=== PATIENT | female | born 1965 | race Caucasian/White ===

== ENCOUNTER 2023-01-02 11:11 | Outpatient (OUT) | payer OTHER, SELFPAY ==
--- NOTE | 2023-01-02 11:45 | MM_ITS ---
Patient: ANGELA GUZMAN Exam Date: 01/02/2023 : 1965 Gender:F Ordering : DR Nick Flores . Admission #: [id number] Family : DR LINDA MOHR M.D. Order #: [id number] CLICK HERE TO VIEW EXAM RADIOLOGY REPORT PROCEDURE: MM TOMOSYNTHESIS SCREENING BI COMPARISON: MG MAMM SCREEN 3D MYRTLE CAD, 12/31/2021. MG MAMM SCREEN 3D MYRTLE CAD, 12/08/2020. MG MAMM SCREEN MYRTLE W CAD, 12/05/2019. MG MAMM MYRTEL SCRN W CAD DIG, 08/26/2013. INDICATIONS: Screening mammogram Z12.31 Calculator Name NCI Breast Cancer Risk Assessment Tool 5 Year Breast Cancer Risk 5.70% Lifetime Breast Cancer Risk 33.60% Personal Breast Cancer No Personal Ovarian Cancer No Treatments None Family Cancers Sister with breast cancer at age 42; Sister with breast cancer at age 57; Aunt-maternal with breast cancer at age 48; Aunt-maternal with ovarian cancer at age 45. LOCATION: [facility] BREAST COMPOSITION: Heterogeneously dense,which may obscure small masses. FINDINGS: DIAGNOSTIC CATEGORY 1--NEGATIVE. RIGHT BREAST: No significant suspicious finding. No significant change has occurred. LEFT BREAST: No significant suspicious finding. No significant change has occurred. RECOMMENDATIONS: ROUTINE MAMMOGRAM AND CLINICAL EVALUATION IN 12 MONTHS. PLEASE NOTE: A NORMAL MAMMOGRAM DOES NOT EXCLUDE THE POSSIBILITY OF BREAST CANCER. A CLINICALLY SUSPICIOUS PALPABLE LUMP SHOULD BE BIOPSIED. Dictated by: Krzysztof Hayes M.D. on 01/02/2023 at 14:44 Approved by: Krzysztof Hayes M.D. on 01/02/2023 at 14:49
== END 2023-01-02 11:12 | disposition home or self-care (01) ==
LOC: MAMMO 11:16
PROVIDERS: PCP Family Medicine; Visit Provider Obstetrics & Gynecology
DX: Z12.31 Encounter for screening mammogram for malignant neoplasm of breast (principal); Z80.3 Family history of malignant neoplasm of breast
CPT/HCPCS: 77063; 77067

== ENCOUNTER 2024-12-23 12:44 | Outpatient (REF) | payer OTHER, SELFPAY ==
--- OUTSIDE RECORDS SUMMARY | 2024-12-16 16:15 | XMS_ITS | Encounter Summary ---
Author Organization [facility] Address [address] [place] [address] Care Team Providers Care Tagman Name Role Phone Waldemar Mercado MD Primary Care Provider [phone] Waldemar Mercado MD Unavailable Reason for Visit * Reason Comments MRI Results Pt is here today for MRI results, she states no changes. Encounter Details Date Type Department Care Team (Late st Contact Info) Description 12/16/2024 4:15 PM EDT [facility] Visit [facility] [address] [place] [address] Leonid Sierra, DPBrie [address] [place], [place] [phone] Stress fracture of left foot, initial encounter (Primary Dx); Left foot pain; Instability of left ankle joint; Difficulty walking Social History Tobacco Use Types Packs/Day Years Used Date Smoking Tobacco: Never Smokeless Tobacco: Never Tobacco Cessation:Counseling Given: Not Answered Alcohol Use Standard Drinks/Week Comments Not Currently 0 (1 standard drink = 0.6 oz pure alcohol) 1 or 2 drinks, monthly or less Comments Unknown Sex and Gender Information Value Date Recorded Sex Assigned at Not on file Legal Sex Female 7:00 PM EDT Gender Identity Not on file Sexual Orientation Not on file documented as of this encounter Last Filed Vital Signs Vital Sign Reading Time Taken Comments Blood Pressure - - Pulse - - Temperature - - Respiratory Rate - - Oxygen Saturation - - Inhaled Oxygen Concentration - - Weight 74.8 kg (165 lb) 12/16/2024 4:17 PM EDT Height 160 cm (5' 3 ) 12/16/2024 4:17 PM EDT Body Mass Index 29.23 12/16/2024 4:17 PM EDT documented in this encounter Progress Notes * Leonid Carr Vernon, DPM - 12/16/2024 4:15 PM EDT Images from the original note were not included. Subjective Patient ID: Cruzito Ruth is a 59 y.o. female who presents for MRI Results (Pt is here today for MRI results, she states no changes./). HPI Established patient returns to clinic for MRI review of the left foot. I have been treating her forsuspected Michelle's neuroma. Last visit she had minimal improvement following injection into the 3rdinterspace. I did have some concern for stress fracture an MRI was ordered. She returns to clinic for evaluation and MRI review. Continues to have pain daily. She states it is very annoying and makes me grouchy . Review of Systems Constitutional: Negative for activity change and appetite change. Respiratory: Negative for chest tightness and shortness of breath. Cardiovascular: Negative for chest pain. Musculoskeletal: Positive for arthralgias and gait problem. Skin: Negative for color change and wound. Neurological: Negative for weakness and numbness. Psychiatric/Behavioral: Negative for agitation and behavioral problems. Hematological: Does not bruise/bleed easily. Endocrine: Negative for cold intolerance and heat intolerance. Allergic/Immunologic: Negative for immunocompromised state. Past medical History Past Medical History: Diagnosis Date Autoimmune thyroiditis Chronic urticaria Frank's disease Nephrolithiasis 2014 Nontoxic goiter, unspecified Osteopenia 12/14/2020 DEXA Scan Moderate fx risk Psoriatic arthritis (HCC) Medications Current Outpatient Medications: furosemide (Lasix) 20 MG tablet, Take 1 tablet (20 mg) by mouth in the morning and 1 tablet (20 mg)before bedtime., Disp: 200 tablet, Rfl: 3 levothyroxine (Synthroid, Levoxyl) 75 MCG tablet, TAKE 1 TABLET BY MOUTH EVERY DAY IN THE MORNING ON EMPTY STOMACH, Disp: 100 tablet, Rfl: 3 omalizumab (Xolair) 150 MG/ML injection, Inject 2 mL (300 mg) under the skin every 28 (twenty-eight) days, Disp: 300 mL, Rfl: 2 phentermine (Adipex-P) 37.5 MG tablet, Take 1 tablet (37.5 mg) by mouth in the morning. Take beforemeals., Disp: 30 tablet, Rfl: 0 Xolair 150 MG/ML injection, Inject 2 mL (300 mg) under the skin See administration instructions Inject 2 mL (300 mg) under the skin every 6 weeks, Disp: 2 mL, Rfl: 3 Allergies Milk-related compounds, Penicillin g, Penicillins, Glycerin, Milk (cow), Soybean oil, and Wheat Past Surgical History Past Surgical History: Procedure Laterality Date APPENDECTOMY SECTION, CLASSIC 1995, 2000 x 2 [facility] SECTION, LOW TRANSVERSE 11/04/1992 COLONOSCOPY 03/23/2015 Internal Hemorrhoids, Biopsy x2 HERNIA REPAIR Left TOTAL ABDOMINAL HYSTERECTOMY W/ BILATERAL SALPINGOOPHORECTOMY 2003 Left oophorectomy Family History Family History Problem Relation Name Age of Onset Thyroid disease Mother Keysha Reich Hypertension Mother Keysha Reich Hypothyroidism Mother Keysha Reich Diabetes Father Dario Reich Breast cancer Sister Cancer Sister Colleen Anderson Cancer Sister Rachele Rachana Hypertension Maternal Grandmother Darby Sim Román Cancer Maternal Grandfather Diabetes Paternal Grandfather Alfonzo Román Other (viral meningitis) Child Melanoma Neg Hx Objective Physical Exam HENT: Head: Normocephalic and atraumatic. Cardiovascular: Pulses: Normal pulses. Pulmonary: Effort: Pulmonary effort is normal. No respiratory distress. Abdominal: Palpations: There is no mass. Musculoskeletal: Cervical back: No rigidity. Comments: Weightbearing examination reveals rectus morphology with slight cavus tendency. Maintenance of the medial longitudinal arch. Left foot: Isolated and maximal tenderness at the 4th metatarsal with some tenderness to palpation of the dorsal 5th metatarsal as well. Positive forefoot compression test, negative Geraldine's click. Muscle strength 5/5 for all quadrants without tenderness. Ankle dorsiflexion 0 degrees with the knee extended, 5 degrees with the knee flexed. Skin: Capillary Refill: Capillary refill takes less than 2 seconds. Findings: No lesion or rash. Neurological: Mental Status: She is alert. Comments: No loss of protective sensation, gross sensation intact. Psychiatric: Mood and Affect: Mood normal. Behavior: Behavior normal. 12/06/2024: MRI of the left foot reveals marrow edema at the base of the 4th metatarsal without fracture line. No evidence for Michelle's neuroma. Assessment/Plan ICD-10-CM 1. Stress fracture of left foot, initial encounter M84.375A 2. Left foot pain M79.672 3. 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 Difficulty walking R26.2 Patient examined and evaluated. Reviewed previous imaging studies and personally reviewed her MRI.MRI consistent with stress fracture of the 4th metatarsal base. At this time I recommend immobilization in a fracture boot for 6 weeks. Patient was fitted today for a below knee walking cast, cam walker. At the time of dispensing it was suitable and not substandard. Goals of therapy include prevent further injury, stabilization, reduction of stress and pressure to the injured area. Anticipated time of use is at least 6 weeks. Patient was instructed in the application and removal of this device.It fit well and she demonstrated the ability to don and doff the device independently. ABN form discussed, presented, explained and then signed by patient. She may remove the fracture boot multiple times a day for gentle [id number] exercises. No ambulation without the boot. Follow up 6 weeks with repeat radiographs necessary at that time only if she is continuing to have issues. This note was created with the assistance of a speech recognition program. While intending to generate a timely document that accurately reflects the content of the visit, no guarantee can be provided that every grammatical or spelling mistake has been or will be identified or corrected. Thank you for your understanding. Leonid Sierra DPM documented in this encounter Plan of Treatment Upcoming Encounters Date Type Department Care Team (Late st Contact Info) Description 01/27/2025 10:00 AM EDT Office Visit [facility] [address] [facility] [place] [phone] Leonid Sierra DPM [address] [place], [place] [phone] documented as of this encounter Visit Diagnoses Diagnosis Stress fracture of left foot, initial encounter- Primary Left foot pain Pain in soft tissues of limb Instability of left ankle joint Difficulty walking Difficulty in walking documented in this encounter Care Teams Tagman Relationship Specialty Start Date End Date Waldemar Mercado MD 112 [facility] [address] [place] [address] PCP - General Family Medicine 11/08/22 Waldemar Mercado MD 112 [facility] [address] [place] [address] PCP - Medical [place] 07/03/23 07/02/99 documented as of this encounter
--- OUTSIDE RECORDS SUMMARY | 2024-12-23 08:30 | XMS_ITS | Encounter Summary ---
Author Organization [facility] Address [address] [place] [address] Care Team Providers Care Director Of Regional Sales Name Role Phone Waldemar Mercado MD Primary Care Provider [phone] Waldemar Mercado MD Unavailable Reason for Visit * Reason Comments Well Women Visit Encounter Details Date Type Department Care Team (Late st Contact Info) Description 12/23/2024 8:30 AM EDT [facility] Visit [facility] [address] [facility] [place] [phone] Nick Flores DO [address], [facility]11 Well woman exam with routine gynecological exam; Breast cancer screening by mammogram; Postmenopausal state; Bee sting reaction, accidental or unintentional, initial encounter Social History Tobacco Use Types Packs/Day Years Used Date Smoking Tobacco: Never Smokeless Tobacco: Never Alcohol Use Standard Drinks/Week Comments Not Currently 0 (1 standard drink = 0.6 oz pure alcohol) 1 or 2 drinks, monthly or less Comments No Sex and Gender Information Value Date Recorded Sex Assigned at Not on file Legal Sex Female 7:00 PM EDT Gender Identity Not on file Sexual Orientation Not on file documented as of this encounter Last Filed Vital Signs Vital Sign Reading Time Taken Comments Blood Pressure 118/68 12/23/2024 8:47 AM EDT Pulse - - Temperature - - Respiratory Rate - - Oxygen Saturation - - Inhaled Oxygen Concentration - - Weight 76.6 kg (168 lb 12.8 oz) 12/23/2024 8:47 AM EDT Height - - Body Mass Index 29.9 12/16/2024 4:17 PM EDT documented in this encounter Plan of Treatment Upcoming Encounters Date Type Department Care Team (Late st Contact Info) Description 01/27/2025 10:00 AM EDT Office Visit [facility] [address] [place] [address] Leonid Sierra, DPM [address] [place] [address] Scheduled Orders Name Type Priority Associated Diagnoses Orde r Schedule Bilateral screening mammogram Imaging Routine Breast cancer screening by mammogram Expected: 12/23/2024, Expires: 02/22/2026 THIN PREP TIS PAP AND HR HPV DNA Pathology and Cytology Routine Well woman exam with routine gynecological exam Ordered: 12/23/2024 documented as of this encounter Procedures Procedure Name Priority Date/Time Associated Diagnosis Comments PAP SMEAR Routine 12/08/2020 12:00 AM EDT documented in this encounter Results * Pap Smear (12/08/2020 12:00 AM EDT) Swab Cervical swab / Unknown us Waldemar Mercado MD LAB CYTOLOGY ORDERABLES Final Re sult EXTERNAL LAB documented in this encounter Visit Diagnoses Diagnosis Well woman exam with routine gynecological exam Routine gynecological examination Breast cancer screening by mammogram Postmenopausal state Asymptomatic postmenopausal status (age-related) (natural) Bee sting reaction, accidental or unintentional, initial encounter documented in this encounter Care Teams Director Of Regional Sales Relationship Specialty Start Date End Date Waldemar Mercado MD [address] [facility] [address] [place] [address] PCP - General Family Medicine 11/08/22 Waldemar Mercado MD [address] [place] [address] PCP - Medical [place] [employer] 07/03/23 07/02/99 documented as of this encounter
--- OUTSIDE RECORDS SUMMARY | 2024-12-23 12:47 | XMS_ITS | Encounter Summary ---
Author Organization [facility] Address [address] [place] [address] Care Team Providers Care Iron Handler Name Role Phone Waldemar Mercado MD Primary Care Provider [phone] Waldemar Mercado MD Unavailable Encounter Details Date Type Department Care Team (Latest Contact Info) Description 12/16/2024 Travel Social History Tobacco Use Types Packs/Day Years [...] on file documented as of this encounter Plan of Treatment Upcoming Encounters Date Type Department Care Team (Late st Contact Info) Description 01/27/2025 10:00 AM EDT Office Visit [facility] [address] [place] [phone] Leonid Sierra DPM [address] [place], [place] [phone] documented as of this encounter Visit Diagnoses Not on filedocumented in this encounter Care Teams Iron Handler Relationship Specialty Start Date End Date Waldemar Mercado MD [address] [facility] [address] [place] [address] PCP - General Family Medicine 11/08/22 Waldemar Mercado MD [address] [place] [address] PCP - Medical [place] [employer] 07/03/23 07/02/99 documented as of this encounter
--- OUTSIDE RECORDS SUMMARY | 2024-12-23 12:47 | XMS_ITS | Encounter Summary ---
Author Organization [facility] Address [address] [place] [address] Care Team Providers Care Terrazzo Laborer Name Role Phone Waldemar Mercado MD Primary Care Provider [phone] Waldemar Mercado MD Unavailable Encounter Details Date Type Department Care Team (Late st Contact Info) Description 12/16/2024 Bamboo flowsheet [facility] [address] [place] [phone] Leonid Sierra DPM [address] [place], [place] [address] Social History Tobacco Use Types Packs/Day Years [...] EDT Office Visit [facility] [address] [place] [address] Leonid Sierra DPM [address] [place], [place] [phone] documented as of this encounter Visit Diagnoses Not on filedocumented in this encounter Care Teams Terrazzo Laborer Relationship Specialty Start Date End Date Waldemar Mercado MD 112 [facility] 110 [place] [address] PCP - General Family Medicine 11/08/22 Waldemar Mercado MD 112 [facility] [address] [place] [address] PCP - Medical [place] [employer] 07/03/23 07/02/99 documented as of this encounter
--- OUTSIDE RECORDS SUMMARY | 2024-12-23 12:47 | XMS_ITS | Encounter Summary ---
Author Organization [facility] Address [address] [place] [address] Care Team Providers Care Process Coach Name Role Phone Waldemar Mercado MD Primary Care Provider [phone] Waldemar Mercado MD Unavailable Encounter Details Date Type Department Care Team (Late st Contact Info) Description 01/04/2023 Abstract [facility] [address] [facility] 110 [place] [address] Waldemar Mercado MD 112 [facility] [address] [place] [address] Social History Tobacco Use Types Packs/Day Years Used Date Smoking Tobacco: Never Smokeless Tobacco: Never Alcohol Use Standard Drinks/Week Comments Yes 0 (1 standard drink = 0.6 oz pur e alcohol) 1 or 2 drinks, monthly or [...] AM EDT Office Visit [facility] [address] [place] [phone] Leonid Sierra, DPM [address] [place], [place] [phone] documented as of this encounter Visit Diagnoses Not on filedocumented in this encounter Care Teams Process Coach Relationship Specialty Start Date End Date Waldemar Mercado MD [address] [address] PCP - General Family Medicine 11/08/22 Waldemar Mercado MD 112 [facility] 110 [place] [address] PCP - Medical [place] [employer] 07/03/23 07/02/99 documented as of this encounter
--- OUTSIDE RECORDS SUMMARY | 2024-12-23 12:47 | XMS_ITS | Encounter Summary ---
Author Organization [facility] Address [address] [place] [address] Care Team Providers Care Research Engineer Marine Equipment Name Role Phone Waldemar Mercado MD Primary Care Provider [phone] Waldemar Mercado MD Unavailable Encounter Details Date Type Department Care Team (Late st Contact Info) Description 12/07/2022 Abstract [facility] [address] [facility] [address] [place] [address] Aleyda Tam MD [address] [facility] [address] [place] [address] Social History Tobacco Use Types Packs/Day Years Used Date Smoking Tobacco: Never Tobacco Cessation:Counseling Given: Not Answered Alcohol Use Standard Drinks/Week Comments Yes 0 [...] AM EDT Office Visit [facility] [address] [place] [phone] Leonid Sierra, YAMILAM [address] [place] [address] documented as of this encounter Visit Diagnoses Not on filedocumented in this encounter Care Teams Research Engineer Marine Equipment Relationship Specialty Start Date End Date Waldemar Mercado MD 112 [facility] 110 [place] [address] PCP - General Family Medicine 11/08/22 Waldemar Mercado MD 112 [facility] 110 [place] [address] PCP - Medical [place] [facility] [employer] 07/03/23 07/02/99 documented as of this encounter
--- OUTSIDE RECORDS SUMMARY | 2024-12-23 12:47 | XMS_ITS | Clinical Summary ---
Author Organization [facility] Healthcare Address [address] [place] [address] Care Team Providers Care Cut Roll Machine Operator Name Role Phone Waldemar Mercado MD Primary Care Provider [phone] Waldemar Mercado MD Unavailable Allergies Active Allergy Reactions Criticality Noted Date Comments Glycerin Rash Low 03/19/2021 Milk (Cow) Rash Low 03/19/2021 Milk-Related Compounds 04/25/2023 Other Reaction(s): , red skin Penicillin G Hives 06/24/2015 Penicillins 06/24/2015 Soybean Oil Rash Low 03/19/2021 Wheat Rash Low 03/19/2021 Medications furosemide (Lasix) 20 MG tabletIndicati ons:Acute renal failure, unspecified acute renal failure type Take 1 tablet (20 mg) by mouth in the morning and 1 tablet (20 mg) before bedtime. 200 tablet 3 024 Active omalizumab (Xolair) 150 MG/ML injectionIndic ations:Seasona l allergies Inject 2 mL (300 mg) under the skin every 28 (twenty-eight) days 300 mL 2 025 Active Xolair 150 MG/ML injectionIndic ations:Idiopat hic urticaria Inject 2 mL (300 mg) under the skin See administration instructions Inject 2 mL (300 mg) under the skin every 6 weeks 2 mL 3 025 Active levothyroxine (Synthroid, Levoxyl) 75 MCG tabletIndicati ons:Autoimmune thyroiditis TAKE 1 TABLET BY MOUTH EVERY DAY IN THE MORNING ON EMPTY STOMACH 100 tablet 3 025 Active methylPREDNISo lone (Medrol Dospak) 4 MG tabletsIndicat ions:Bee sting reaction, accidental or unintentional, initial encounter Day 1: 6 tablets Day 2: 5 tablets Day 3: 4 tablets Day 4: 3 tablets Day 5: 2 tablets Day 6: 1 tablet 21 tablet 025 Active levothyroxine (Synthroid, Levoxyl) 75 MCG tabletIndicati ons:Autoimmune thyroiditis TAKE 1 TABLET BY MOUTH EVERY DAY IN THE MORNING ON EMPTY STOMACH 100 tablet 3 024 2024 Discontinued phentermine (Adipex-P) 37.5 MG tabletIndicati ons:BMI 30.0-30.9,adul t Take 1 tablet (37.5 mg) by mouth in the morning. Take before meals. 30 tablet 025 2024 Discontinued Active Problems Problem Noted Date Diagnosed Date Benign essential hypertension 08/19/2024 Assessment & Plan (08/19/2024 8:54 AM EST): Our specific goals, for your hypertension, is to keep your blood pressure less than 140/90, and the importance of weight control. We made recommendations on how to control your blood pressure, and minimize your risk of these copmplications. We also discussed your current barriers to a healthy living and importance of healthy diet and exercise. Prior to your visit today we have reviewed your chart and formed a plan to assist with providing you the best possible care. We reviewed the possible complications of hypertension including, stroke, heart failure and kidney impairment. In addition, we discussed your medications, the importance of taking them as prescribed. DASH diet handouts Weight gain 08/19/2024 Acute left-sided low back pain without sciatica 11/28/2023 Acute renal failure syndrome 11/28/2023 Allergic to food 11/28/2023 Arthralgia of upper arm 11/28/2023 BMI 30.0-30.9,adult 11/28/2023 Assessment & Plan (08/19/2024 8:54 AM EST): Needs life style modification. Exercise Routinely Low Calorie Diet F/U in 2 weeks 3500 calorie deficit = 1lb weight loss Small portions TIming of meals Reduce Carbohydrate Intake High Protein Diet Assessment & Plan (11/28/2023 1:51 PM EDT): Needs life style modification. 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 Advised possible follow up for biopsy of lesion Abnormal glucose tolerance test 11/28/2023 Encounters Date Type Department Care Team Description 12/23/2024 8:30 AM EDT Office Visit [facility] [address] [place] [address] Nick Flores, Well woman exam with routine gynecological exam; Breast cancer screening by mammogram; Postmenopausal state; Bee sting reaction, accidental or unintentional, initial encounter 12/23/2024 Bamboo flowsheet [facility] [address] [place] [address] Nick Flores DO 12/16/2024 4:15 PM EDT [facility] Visit [facility] [address] [place] [address] Leonid Sierra, DPM Stress fracture of left foot, initial encounter (Primary Dx); Left foot pain; Instability of left ankle joint; Difficulty walking 12/16/2024 Bamboo flowsheet [facility] [address] [place] [address] Leonid Sierra DPM 12/16/2024 Travel 12/06/2024 2:30 PM EDT Ancillary Procedure [facility] [address] [facility] [place] [place] [address] 12/06/2024 Travel 12/04/2024 9:15 AM EDT Office Visit [facility] [address] [place] [address] Leonid Sierra DPM Morton's neuroma of left foot (Primary Dx); Stress fracture of left foot, initial encounter; Left foot pain; Other synovitis and tenosynovitis, left ankle and foot 12/04/2024 Bamboo flowsheet [facility] [address] [place] [address] Leonid Sierra DPM 12/04/2024 Travel 12/03/2024 Travel 12/02/2024 Refill [facility] [address] [facility] [address] [place] [address] Waldemar Mercado MD Autoimmune thyroiditis 11/20/2024 10:00 AM EDT Office Visit [facility] [address] [place] [address] Leonid Sierra DPM Michelle's neuroma of left foot (Primary Dx); Neuritis; Left foot pain 11/20/2024 Bamboo flowsheet [facility] [address] [place] [address] Leonid Sierra DPM 11/20/2024 Travel 11/19/2024 Travel 11/12/2024 Abstract [facility] [address] [facility] [address] [place] [address] Waldemar Mercado MD 10/31/2024 Telephone [facility] [address] [place] [address] Graciela Hinton LPN 10/31/2024 Refill [facility] [address] [place] [address] Waldemar Mercado MD Seasonal allergies 10/17/2024 Refill [facility] [address] [place] [address] Waldemar Mercado MD BMI 30.0-30.9,adult from Last 3 Months Family History Medical History Relation Name Comments viral meningitis Child Diabetes Father Dario Rachana Cancer Maternal Grandfather Hypertension Maternal Grandmother Darby [place] Hypertension Mother Keysha Rachana Hypothyroidism Mother Keysha Rachana Thyroid disease Mother Keysha Rachana Diabetes Paternal Grandfather Alfonzo Román Breast cancer Sister 1 Cancer Sister 2 Colleen Anderson Cancer Sister 3 Rachele Rachana Melanoma Neg Hx Relation Name Status Comments Child Alive Daughter Alive Father Dario Rachana Alive Maternal Grandfather Maternal Grandmother Darby [place] Mother Keysha Rachana Alive Paternal Grandfather Alfonzo Román Paternal Grandmother Sister 1 4 sisters Sister 2 Colleen Anderson Sister 3 Rachele Rachana Son 1 Alive Son 2 Alive Social History Tobacco Use Types Packs/Day Years [...] on file Sexual Orientation Not on file Last Filed Vital Signs Vital Sign Reading Time Taken Comments Blood Pressure 118/68 12/23/2024 8:47 AM EDT Pulse 71 08/19/2024 8:45 AM EST Temperature - - Respiratory Rate - - Oxygen Saturation 97% 08/19/2024 8:45 AM EST Inhaled Oxygen Concentration - - Weight 76.6 kg (168 lb 12.8 oz) 12/23/2024 8:47 AM EDT Height 160 cm (5' 3 ) 12/16/2024 4:17 PM EDT Body Mass Index 29.9 12/16/2024 4:17 PM EDT Plan of Treatment Upcoming Encounters Date Type Department Care Team (Late st Contact Info) Description 01/27/2025 10:00 AM EDT Office Visit [facility] [address] [facility] [place] [phone] Leonid Sierra, DPM [address] [place], [place] [address] Health Maintenance Due Date Last Done Comments CT Colonography 1967 FIT-DNA 1967 FIT 1967 FOBT 1965 Sigmoidoscopy 1967 Mammogram 02/05/2025 02/06/2024, 07/0 07/2021, 12/08/2020, Additional history exists Influenza Vaccine (Season Ended) 2025 Colonoscopy 03/23/2025 03/23/2015 Colorectal Cancer Screening 03/23/2025 Cervical Cancer Screening Discontinued Pap Smear Discontinued 12/08/2020 HPV/Cotest Discontinued Procedures Procedure Name Priority Date/Time Associated Diagnosis Comments MR FOOT LEFT WO IV CONTRAST Routine 12/06/2024 3:11 PM EDT Imchelle's neuroma of left foot Stress fracture of left foot, initial encounter BI MAMMOGRAM SCREENING TOMOSYNTHESIS BILATERAL 02/06/2024 10:37 AM EDT PAP SMEAR Routine 12/08/2020 12:00 AM EDT COLONOSCOPY Routine 03/23/2015 12:00 PM EDT from Last 3 Months or Most Recently Relevant to Health Maintenance Results * MR foot left wo IV contrast (12/06/2024 3:11 PM EDT) Anatomical Region Laterality Modality Lower Extremities, Foot Left Magnetic Resonance 12/09/2024 8:10 AM EDT Impressions 12/09/2024 10:26 AM EDT Small amount of bone marrow edema at the base of the fourth metatarsal as discussed. No evidence for Michelle's neuroma. ELECTRONICALLY SIGNED BY: Haroldo Lui MD Narrative 12/09/2024 10:26 AM EDT EXAM/TECHNIQUE: MR FOOT LEFT WO IV CONTRAST HISTORY: Left foot pain. Possible Michelle's neuroma. Possible stress fracture. COMPARISON: Radiographs 09/25/2023. RESULT: Bone Marrow: Small amount of bone marrow edema involving the base of the fourth metatarsal, without distinct fracture line, with differential including bone contusion, degenerative signal, and low-grade stress changes. Otherwise bone marrow signal unremarkable. Subcutaneous Tissues: Unremarkable. Joints: Mild degenerative changes first MTP joint. Tendons: Flexor and extensor tendons are within normal limits. Plantar Plates: Plantar plates are intact-appearing. Intermetatarsal Spaces: No evidence of Michelle's neuroma. Lisfranc Ligament: Intact. Plantar Aponeurosis: Visualized portions of the plantar aponeurosis within normal limits. Muscles: Muscle bulk and signal intensity are within normal limits. Other: No other significant abnormality Procedure Note Haroldo Lui MD - 12/09/2024 EXAM/TECHNIQUE: MR FOOT LEFT WO IV CONTRAST HISTORY: Left foot pain. Possible Michelle's neuroma. Possible stressfracture. COMPARISON: Radiographs 09/25/2023. RESULT: Bone Marrow: Small amount of bone marrow edema involving the base of thefourth metatarsal, without distinct fracture line, with differentialincluding bone contusion, degenerative signal, and low-grade stresschanges. Otherwise bone marrow signal unremarkable. Subcutaneous Tissues: Unremarkable. Joints: Mild degenerative changes first MTP joint. Tendons: Flexor and extensor tendons are within normal limits. Plantar Plates: Plantar plates are intact-appearing. Intermetatarsal Spaces: No evidence of Michelle's neuroma. Lisfranc Ligament: Intact. Plantar Aponeurosis: Visualized portions of the plantar aponeurosis withinnormal limits. Muscles: Muscle bulk and signal intensity are within normal limits. Other: No other significant abnormality IMPRESSION: Small amount of bone marrow edema at the base of the fourth metatarsal asdiscussed. No evidence for Michelle's neuroma. ELECTRONICALLY SIGNED BY: Haroldo Lui MD Leonid Sierra DPBrie IMG MRI PROCEDURES Final Re sult * Bilateral screening mammogram with tomosynthesis (02/06/2024 10:37 AM EDT) Anatomical Region Laterality Modality Breast Bilateral Mammography 02/06/2024 10:3 7 AM EDT Impressions 02/06/2024 10:40 AM EDT NO MAMMOGRAPHIC EVIDENCE OF MALIGNANCY. ROUTINE FOLLOW-UP IS RECOMMENDED IN ONE YEAR. RESULT CODE: 1 Negative DENSITY CODE: 2 (approximately 25-50% glandular) FOLLOW UP: 1YR The false-negative rate of mammography is approximately 10-percent. Management of a palpable abnormality must be based on clinical grounds. Patient was entered into a reminder system with a target due date for the next mammogram. Impression dictated by: Kyler Zamarripa Jr., D.OSarita02/06/2024 10:38 AM Dictation Location: [facility] Transcribed By: [facility] 02/06/24 1038 Dictated By: Kyler Zamarripa Jr, DO 02/06/24 1037 Signed By: <Electronically signed by Kyler Zamarripa Jr, DO in OV> 02/06/24 1038 Narrative 02/06/2024 10:40 AM EDT [facility] [place] [address] Mammography Report Signed Patient: Cruzito Ruth MR#: [id number] : 1965 Acct:[id number] Age/Sex: 58 / F ADM Date: 02/06/24 Loc: [place] Room: Type: [facility] Attending Dr: Waldemar Mercado MD Copies to: Waldemar Mercado MD Ordering Provider: Waldemar Mercado MD Date of Service: 02/06/24 MM/MM screening mammo BI w/CAD: SCREENING CLINICAL DATA: Screening for malignancy. SCREENING MAMMOGRAM - FULL FIELD DIGITAL WITH TOMOSYNTHESIS AND CAD COMPARISON:Mammogram 12/31/2021 Tomosynthesis craniocaudal and mediolateral oblique views of both breasts were obtained using low- dose digital technique. This examination was reviewed with the aid of CAD. FINDINGS: The breast tissue is composed of scattered fibroglandular densities. There are no dominant masses, typically malignant calcifications or architectural distortion. There has been no significant interval change. MM/MM screening mammo BI w/CAD Procedure Note Radiology, Radiologist, - 02/06/2024 [facility] Main [place] [address] [place] [address] Mammography Report Signed Patient: Cruzito RuthMR#: [id number] : 1965Acct:[id number] Age/Sex: 58 / FADM Date: 02/06/24 Loc: [place] Room:Type: [facility] Attending Dr: Waldemar Mercado MD Copies to: Waldemar Mercado MD Ordering Provider: Waldemar Mercado MD Date of Service: 02/06/24 MM/MM screening mammo BI w/CAD: SCREENING CLINICAL DATA: Screening for malignancy. SCREENING MAMMOGRAM - FULL FIELD DIGITAL WITH TOMOSYNTHESIS AND CAD COMPARISON:Mammogram 12/31/2021 Tomosynthesis craniocaudal and mediolateral oblique views of both breastswere obtained using low- dose digital technique. This examination was reviewed with the aid ofCAD. FINDINGS: The breast tissue is composed of scattered fibroglandular densities.There are no dominant masses, typically malignant calcifications or architectural distortion. There hasbeen no significant interval change. MM/MM screening mammo BI w/CAD IMPRESSION: NO MAMMOGRAPHIC EVIDENCE OF MALIGNANCY. ROUTINE FOLLOW-UP IS RECOMMENDED IN ONE YEAR. RESULT CODE: 1 Negative DENSITY CODE: 2 (approximately 25-50% glandular) FOLLOW UP: 1YR The false-negative rate of mammography is approximately 10-percent. Management of a palpable abnormality must be based on clinical grounds. Patient was entered into a reminder system with a target due date for thenext mammogram. Impression dictated by: Kyler Zamarripa Jr., D.OSarita02/06/2024 10:38 AM Dictation Location: [facility] Transcribed By: [facility] 02/06/24 1038 Dictated By: Kyler Zamarripa Jr, DO 02/06/24 1037 Signed By: <Electronically signed by Kyler Zamarripa Jr DO inOV> 02/06/24 1038 us Waldemar Mercado MD IMG BI PROCEDURES Final Result * Pap Smear (12/08/2020 12:00 AM EDT) Swab Cervical swab / Unknown Waldemar Mercado MD LAB CYTOLOGY ORDERABLES Final Re sult EXTERNAL LAB * Colonoscopy (03/23/2015 12:00 PM EDT) Anatomical Region Laterality Modality Endoscopy 03/23/2015 12:0 0 PM EDT Narrative 03/23/2015 12:00 PM EDT PERFORMED AT [facility] LOCATION:[id number] Internal Hemorrhoids, Biopsy x2 Procedure Note CONVERSION, GENERIC - 11/17/2022 PERFORMED AT [facility] LOCATION:[id number] Internal Hemorrhoids, Biopsy x2 Waldemar Mercado MD ENDOSCOPY PROCEDURE ORDERABLES F inal Result from Last 3 Months or Most Recently Relevant to Health Maintenance Insurance [employer] Care Teams Cut Roll Machine Operator Relationship Specialty Start Date End Date Waldemar Mercado MD [address] [facility] [address] [place] [address] PCP - General Family Medicine 11/08/22 Waldemar Mercado MD [address] [facility] [address] [place] [address] PCP - Medical [place] [employer] 07/03/23 07/02/99
--- OUTSIDE RECORDS SUMMARY | 2024-12-23 12:48 | XMS_ITS | Encounter Summary ---
Author Organization [facility] Address [address] [place] [address] Care Team Providers Care Heating And Ventilating Worker Name Role Phone Waldemar Mercado MD Primary Care Provider [phone] Waldemar Mercado MD Unavailable Encounter Details Date Type Department Care Team (Late st Contact Info) Description 08/13/2024 Abstract [facility] [address] [address] Nick Flores, DO [address] [facility] [address] [place], [place] [id number] Social History Tobacco Use Types Packs/Day Years [...] Office Visit [facility] [address] [place] [address] Leonid Sierra, DPM [address] [place], [place] [phone] documented as of this encounter Visit Diagnoses Not on filedocumented in this encounter Care Teams Heating And Ventilating Worker Relationship Specialty Start Date End Date Waldemar Mercado MD 112 [facility] 110 [place] [address] PCP - General Family Medicine 11/08/22 Waldemar Mercado MD [address] [address] PCP - Medical [place] [employer] 07/03/23 07/02/99 documented as of this encounter
--- OUTSIDE RECORDS SUMMARY | 2024-12-23 12:48 | XMS_ITS | Encounter Summary ---
Author Organization [facility] Address [address] [place] [address] Care Team Providers Care Asbestos Abatement Worker Name Role Phone Waldemar Mercado MD Primary Care Provider [phone] Waldemar Mercado MD Unavailable Encounter Details Date Type Department Care Team (Late st Contact Info) Description 11/08/2023 Abstract [facility] [address] [place] [address] Nick Flores, DO [address] [facility] [address] [place], [place] [id number] Social History Tobacco Use Types Packs/Day Years [...] Office Visit [facility] [address] [place] [phone] Leonid Sierra, DPM [address] [place], [place] [phone] documented as of this encounter Visit Diagnoses Not on filedocumented in this encounter Care Teams Asbestos Abatement Worker Relationship Specialty Start Date End Date Waldemar Mercado MD 112 [facility] 110 [place] [address] PCP - General Family Medicine 11/08/22 Waldemar Mercado MD [address] [address] PCP - Medical [place] [employer] 07/03/23 07/02/99 documented as of this encounter
--- OUTSIDE RECORDS SUMMARY | 2024-12-23 12:48 | XMS_ITS | Clinical Summary ---
Author Organization [facility] Address [address] [place], [place] [id number] Care Team Providers Care Shoeshiner Name Role Phone Waldemar Mercado MD Primary Care Provider [phone] Allergies Active Allergy Reactions Criticality Noted Date Comments Penicillin Hives 06/24/2015 Medications montelukast (SINGULAIR) 10 mg tablet Take 10 mg by mouth daily at bedtime. Active ranitidine (ZANTAC) 150 mg tablet Take 150 mg by mouth twice daily. Active levothyroxine (SYNTHROID) 50 mcg tablet Take 50 mcg by mouth daily before breakfast. Active diphenhydrAMIN E (BENADRYL) 25 mg capsule Take 50 mg by mouth daily at bedtime. Active fexofenadine (AYLEEN) 180 mg tablet Take 2 tablets by mouth twice daily. 90 tablet 2 5 Active doxepin capsule 25 mg Take 1 capsule by mouth daily at bedtime. 90 capsule 2 5 Active hydroxychloroq uine (PLAQUENIL) 200 mg tablet Take 1 tablet by mouth twice daily. 90 tablet 2 5 Active EPINEPHrine (EPIPEN) 0.3 mg/0.3 mL (1:1,000) auto-injector Use as directed. 2 Each 1 6 Active predniSONE (DELTASONE) 10 mg tablet Daily 10 mg for 1 week and taper to 5 mg daily for 1 week 30 tablet 0 6 Active omalizumab (XOLAIR) 150 mg injection Inject 2.4 mL subcutaneously q 4 WEEKS. 2 Each 11 6 Active Social History Tobacco Use Types Packs/Day Years Used Date Smoking Tobacco: Never Smokeless Tobacco: Never Alcohol Use Standard Drinks/Week Comments Not Asked 0 (1 standard drink = 0.6 oz pur e alcohol) Comments Unknown Sex and Gender Information Value Date Recorded Sex Assigned at Female 05/12/2020 11:17 AM EST Legal Sex Female 9:12 AM EST Gender Identity Female 05/12/2020 11:17 AM EST Sexual Orientation Straight 05/12/2020 11 :17 AM EST Last Filed Vital Signs Vital Sign Reading Time Taken Comments Blood Pressure 121/72 10/09/2015 1:42 PM EDT Pulse 74 10/09/2015 1:42 PM EDT Temperature 37.1 C (98.8 F) 10/09/2015 1:42 PM EDT Respiratory Rate 18 07/22/2015 9:57 AM EST Oxygen Saturation 96% 07/22/2015 9:57 AM EST Inhaled Oxygen Concentration - - Weight - - Height - - Body Mass Index - - Plan of Treatment Health Maintenance Due Date Last Done Comments Anxiety Screening 1985 Depression Screening 1985 HIV Screening 1985 Hepatitis C Screening 1985 DTaP,Tdap,Td Vaccine (1 - Tdap) 1986 Hepatitis B Vaccine (1 of 3 - 19+ 3-dose series) 08/23 Cervical Cancer Screening [address] Colonography 2012 Cologuard (FIT-DNA) 2012 Colonoscopy 2012 Colorectal Cancer Screening 2012 Diabetes Screening 2012 Fecal Occult Blood 2012 Lipid Screening 2012 Sigmoidoscopy 2012 Pneumococcal Vaccine: 50+ (1 of 1 - PCV) 2017 Shingrix Vaccine (1 of 2) 2017 Covid-19 Vaccine (1 - 2023- season) 2024 Influenza Vaccine (Season Ended) 2025 Insurance [employer] Care Teams Shoeshiner Relationship Specialty Start Date End Date Waldemar Mercado MD PCP - General Family Medicine 06/23/15
--- OUTSIDE RECORDS SUMMARY | 2024-12-23 12:48 | XMS_ITS | Encounter Summary ---
Author Organization [facility] Address [address] [place] [address] Care Team Providers Care Varnish Mixer Name Role Phone Waldemar Mercado MD Primary Care Provider [phone] Waldemar Mercado MD Unavailable Encounter Details Date Type Department Care Team (Late st Contact Info) Description 11/12/2024 Abstract [facility] [address] [facility] 110 [place] [address] Waldemar Mercado MD 112 [facility] 110 [place] [address] Social History Tobacco Use Types Packs/Day Years [...] Office Visit [facility] [address] [place] [address] Leonid Sierra, DPM [address] [place], [place] [phone] documented as of this encounter Visit Diagnoses Not on filedocumented in this encounter Care Teams Varnish Mixer Relationship Specialty Start Date End Date Waldemar Mercado MD [address] [address] PCP - General Family Medicine 11/08/22 Waldemar Mercado MD 112 [facility] 110 [place] [address] PCP - Medical [place] [employer] 07/03/23 07/02/99 documented as of this encounter
--- OUTSIDE RECORDS SUMMARY | 2024-12-23 12:48 | XMS_ITS | Encounter Summary ---
Author Organization [facility] Address [address] [place] [address] Care Team Providers Care Reservations Agent Name Role Phone Waldemar Mercado MD Primary Care Provider [phone] Waldemar Mercado MD Unavailable Reason for Visit * Reason Onset Date Comments Med Refill 11/07/2023 Encounter Details Date Type Department Care Team (Late st Contact Info) Description 11/07/2023 Refill [facility] [address] [facility] [address] [place] [phone] Waldemar Mercado MD 112 [facility] 110 [place] [address] Social History Tobacco Use Types Packs/Day Years [...] EDT Office Visit [facility] [address] [place] [phone] Leonid Sierra, ANNIE [address] [place] [address] documented as of this encounter Visit Diagnoses Not on filedocumented in this encounter Care Teams Reservations Agent Relationship Specialty Start Date End Date Waldemar Mercado MD [address] [facility] 110 [place] [address] PCP - General Family Medicine 11/08/22 Waldemar Mercado MD [address] [address] PCP - Medical [place] [employer] 07/03/23 07/02/99 documented as of this encounter
--- OUTSIDE RECORDS SUMMARY | 2024-12-23 12:48 | XMS_ITS | Encounter Summary ---
Author Organization [facility] Address [address] [place] [address] Care Team Providers Care Recruitment Director Name Role Phone Waldemar Mercado MD Primary Care Provider [phone] Waldemar Mercado MD Unavailable Encounter Details Date Type Department Care Team (Late st Contact Info) Description 02/06/2024 Abstract [facility] [address] [place] [phone] Nick Flores, DO [address] [facility] [address] [place], [place] [id number] Social History Tobacco Use Types Packs/Day Years [...] Office Visit [facility] [address] [place] [phone] Leonid Sierra, DPM [address] [facility], [place] [phone] documented as of this encounter Visit Diagnoses Not on filedocumented in this encounter Care Teams Recruitment Director Relationship Specialty Start Date End Date Waldemar Mercado MD [address] [facility] 110 [place] [address] PCP - General Family Medicine 11/08/22 Waldemar Mercado MD [address] [address] PCP - Medical [place] [employer] 07/03/23 07/02/99 documented as of this encounter
--- OUTSIDE RECORDS SUMMARY | 2024-12-23 12:48 | XMS_ITS | Encounter Summary ---
Author Organization [facility] Address [address] [place], [place] [id number] Care Team Providers Care Restaurant Supervisor Name Role Phone Waldemar Mercado MD Primary Care Provider [phone] Source Comments In the event this information is protected by the Federal Confidentiality of Alcohol and Drug AbusePatient Records regulations: The Federal rules restrict any use of the information to criminally investigate or prosecute any alcohol or drug abuse patient.[facility] Encounter Details Date Type Department Care Team ([facility] st Contact Info) Description 07/07/2015 Patient Msg Allergy [address] [id number] Ami Swift [address] [phone] RE: Request an Appointment Social History Tobacco Use Types Packs/Day Years [...] Orientation Straight 05/12/2020 11 :17 AM EST documented as of this encounter Plan of Treatment Not on file documented as of this encounter Visit Diagnoses Not on filedocumented in this encounter Care Teams Restaurant Supervisor Relationship Specialty Start Date End Date Waldemar Mercado MD PCP - General Family Medicine 06/23/15 documented as of this encounter
--- OUTSIDE RECORDS SUMMARY | 2024-12-23 12:48 | XMS_ITS | Encounter Summary ---
Author Organization [facility] Address [address] [place] [address] Care Team Providers Care Report Developer Name Role Phone Waldemar Mercado MD Primary Care Provider [phone] Waldemar Mercado MD Unavailable Encounter Details Date Type Department Care Team (Late st Contact Info) Description 02/06/2024 External Result Encounter [facility] External Department Unsolicited Waldemar Mercado MD 112 [facility] 110 [place] [address] Social History Tobacco Use Types Packs/Day Years [...] 01/27/2025 10:00 AM EDT Office Visit [facility] [address] [place] [address] Leonid Sierra, DPM [address] [place], [place] [phone] documented as of this encounter Procedures Procedure Name Priority Date/Time Associated Diagnosis Comments BI MAMMOGRAM SCREENING TOMOSYNTHESIS BILATERAL 02/06/2024 10:37 AM EDT documented in this encounter Results * Bilateral screening mammogram with tomosynthesis (02/06/2024 [...] Zamarripa Jr., D.OSarita02/06/2024 10:38 AM Dictation Location: [facility] Transcribed By: [facility] 02/06/24 1038 Dictated By: Kyler Zamarripa Jr, DO 02/06/24 1037 Signed By: <Electronically signed by Kyler Zamarripa Jr, DO in OV> 02/06/24 1038 Narrative 02/06/2024 10:[address] [facility] [place] [address] Mammography Report Signed Patient: Cruzito Ruth MR#: [id number] : 1965 Acct:[id number] Age/Sex: 58 / F ADM Date: 02/06/24 Loc: [place] Room: Type: [facility] Attending Dr: Waldemar Mercado MD Copies to: [...] w/CAD Procedure Note Radiology, Radiologist, - 02/06/2024 [facility] [place] [address] [place] [address] Mammography Report Signed Patient: Cruzito RuthMR#: [id number] : 1965Acct:[id number] Age/Sex: 58 / FADM Date: 02/06/24 Loc: [place] Room:Type: [facility] Attending Dr: Waldemar Mercado MD Copies to: [...] mammogram. Impression dictated by: Kyler Zamarripa Jr., D.O.02/06/2024 10:38 AM Dictation Location: [facility] Transcribed By: MARII 02/06/24 1038 Dictated By: Kyler Zamarripa Jr, DO 02/06/24 1037 Signed By: <Electronically signed by Kyler Zamarripa Jr, DO inOV> 02/06/24 1038 Waldemar Mercado MD IMG BI PROCEDURES Final Result documented in this encounter Visit Diagnoses Not on filedocumented in this encounter Care Teams Report Developer Relationship Specialty Start Date End Date Waldemar Mercado MD 112 [facility] 110 [place] [address] PCP - General Family Medicine 11/08/22 Waldemar Mercado MD [address] [address] PCP - Medical [place] [employer] 07/03/23 07/02/99 documented as of this encounter
--- OUTSIDE RECORDS SUMMARY | 2024-12-23 12:48 | XMS_ITS | Encounter Summary ---
Author Organization [facility] Address [facility] [place] [address] Care Team Providers Care Access Services Assistant Name Role Phone Waldemar Mercado MD Primary Care Provider [phone] Source Comments In the event this information is protected by the Federal Confidentiality of Alcohol and Drug AbusePatient Records regulations: The Federal rules restrict any use of the information to criminally investigate or prosecute any alcohol or drug abuse patient.[facility] Encounter Details Date Type Department Care Team (Late st Contact Info) Description 05/12/2020 Patient Msg Endocrinology [address] [place] [address] Yesica Mora MD [address] [place] [address] Appointment Cancellation Request Social History Tobacco Use Types Packs/Day Years [...] on filedocumented in this encounter Care Teams Access Services Assistant Relationship Specialty Start Date End Date Waldemar Mercado MD PCP - General Family Medicine 06/23/15 documented as of this encounter
--- OUTSIDE RECORDS SUMMARY | 2024-12-23 12:48 | XMS_ITS | Encounter Summary ---
Author Organization [facility] Address [address] [place] [address] Care Team Providers Care Crop Insurance Claims Adjuster Name Role Phone Waldemar Mercado MD Primary Care Provider [phone] Waldemar Mercado MD Unavailable Encounter Details Date Type Department Care Team (Late st Contact Info) Description 11/29/2023 Abstract [facility] [address] [facility] [address] [place] [address] Waldemar Mercado MD 112 [facility] 110 [place] [address] Social History Tobacco Use Types Packs/Day Years [...] Office Visit [facility] [address] [place] [address] Leonid Sierra, DPM [address] [place], [place] [phone] documented as of this encounter Visit Diagnoses Not on filedocumented in this encounter Care Teams Crop Insurance Claims Adjuster Relationship Specialty Start Date End Date Waldemar Mercado MD [address] [address] PCP - General Family Medicine 11/08/22 Waldemar Mercado MD 112 [facility] 110 [place] [address] PCP - Medical [place] [employer] 07/03/23 07/02/99 documented as of this encounter
[2024-12-25 11:08] LABS: Age Gdln ACOG Testing Note (.); HPV Aptima Negative (Negative); IGP, Aptima HPV, rfx 16/18,45 Note (.)
== END 2024-12-23 12:45 | disposition home or self-care (01) ==
LOC: LAB 12:44
PROVIDERS: PCP Family Medicine; Visit Provider Obstetrics & Gynecology
DX: Z01.419 Encounter for gynecological examination (general) (routine) without abnormal findings (principal)
CPT/HCPCS: 87624; 88175